=== PATIENT | female | born 1995 | race Caucasian/White ===

== ENCOUNTER 2017-08-25 10:07 | Emergency (ER) | payer OTHER ==
[2017-08-25 10:14] VITALS: BP 108/73
[2017-08-25] MEDS ORDERED: IBUPROFEN 800 MG TABLET PO STA (12:19)
[2017-08-25] MEDS ORDERED: CYCLOBENZAPRINE 10 MG TABLET PO STA (12:19)
--- NOTE | 2017-08-25 12:22 | ED Physician Documentation ---
PD HPI NECK PAIN - Stated complaint Stated Complaint: STIFF NECK - Chief complaint Chief Complaint: Back Pain - History obtained from History obtained from: Patient - History of Present Illness Timing - onset: Other (After getting up this morning she felt her neck crack without specific trauma and now has pain with either rotation or flexion or extension. There is no associated fever or headache. No possibility of . No associated weakness, numbness, tingling in the upper extremities. ) Review of Systems Constitutional: denies: Fever, Chills Nose: denies: Rhinorrhea / runny nose, Congestion Cardiac: reports: Reviewed and negative Respiratory: reports: Reviewed and negative PD PAST MEDICAL HISTORY - Past Medical History Past Medical History: No - Past Surgical History Past Surgical History: No - Present Medications Home Medications: Ambulatory Orders Medication Instructions Recorded Confirmed Cyclobenzaprine [Flexeril] 10 mg PO TID PRN #20 tablet 08/25/17 Ibuprofen [Motrin] 800 mg PO Q8H PRN #30 tablet 08/25/17 - Allergies Allergies/Adverse Reactions: Allergies Allergy/AdvReac Type Severity Reaction Status Date / Time No Known Drug Allergies Allergy Verified 08/25/17 10:14 - Social History Does the pt smoke?: No Smoking Status: Never smoker Does the pt drink ETOH?: No Does the pt have substance abuse?: No - Immunizations Immunizations are current?: Yes PD ED PE NORMAL - Vitals Vital signs reviewed: Yes - General General: Alert and oriented X 3, No acute distress - HEENT HEENT: PERRL, EOMI - Neck Neck: Other (She has difficulty with neck rotation and flexion and extension. She is tender over the left sternocleidomastoid without midline tenderness. 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 Departure - Departure Disposition: Home, Self Care Clinical Impression: Wry neck Condition: Good Record reviewed to determine appropriate education?: Yes Instructions: Torticollis Prescriptions: Cyclobenzaprine [Flexeril] 10 mg PO TID PRN #20 tablet PRN Reason: Pain Ibuprofen [Motrin] 800 mg PO Q8H PRN #30 tablet PRN Reason: PAIN &/OR FEVER Comments: You should be better in about 2 days, [place] Do not drink or drive while taking prescription muscle relaxer. Forms: Activity restrictions
== END 2017-08-25 12:30 | disposition home or self-care (01) ==
LOC: ED 10:07
DX: M43.6 Torticollis (principal)
CPT/HCPCS: 99283; A9270

== ENCOUNTER 2020-02-10 08:00 | Outpatient (CLI) | payer OTHER ==
[2020-02-10 22:27] LABS: TRICHOMONAS VAGINALIS DNA NEGATIVE (NEGATIVE)
== END 2020-02-10 23:59 | disposition home or self-care (01) ==
LOC: LAB.R 08:00
PROVIDERS: ATTEND Obstetrics & Gynecology
DX: Z36.85 Encounter for antenatal screening for Streptococcus B (principal)
CPT/HCPCS: 87491; 87591; 87661; 87797

== ENCOUNTER 2020-03-10 12:13 | Inpatient (IN) | payer OTHER ==
[2020-03-10 13:33] LABS: RUPTURE OF MEMBRANES PLUS POSITIVE (NEGATIVE)
[2020-03-10] MEDS ORDERED: ACETAMINOPHEN 325 MG TABLET PO PRN (14:44)
[2020-03-10] MEDS ORDERED: CARBOPROST TROMETHAMINE 250 MCG/ML AMP IM PRN (14:44)
[2020-03-10] MEDS ORDERED: METHYLERGONOVINE 0.2 MG/ML VIAL IM PRN (14:44)
[2020-03-10] MEDS ORDERED: ONDANSETRON 4 MG/2 ML VIAL IVP PRN (14:44)
[2020-03-10] MEDS ORDERED: OXYTOCIN 10 UNIT/ML VIAL IM PRN (14:44)
[2020-03-10] MEDS ORDERED: OXYTOCIN/SODIUM CHLORIDE 500 ML IV PRN ×2 (14:44)
[2020-03-10] MEDS ORDERED: LIDOCAINE-MPF 1% 30 ML VIAL ID PRN (14:44)
[2020-03-10] MEDS ORDERED: fentaNYL 100 MCG/2 ML VIAL IVP PRN (14:44)
[2020-03-10] MEDS ORDERED: TRANEXAMIC ACID 1,000 MG in SODIUM CHLORIDE 0.9% 100ML 100 ML IV PRN (14:44)
[2020-03-10] MEDS ORDERED: SODIUM CHLORIDE FLUSH 0.9% 10 ML SYRINGE IVP PRN (14:44)
[2020-03-10] MEDS ORDERED: miSOPROStoL 200 MCG TABLET BC PRN (14:44)
[2020-03-10] MEDS ORDERED: miSOPROStoL 100 MCG TABLET ONE (15:05)
[2020-03-10 15:12] LABS: BASOPHILS % (AUTO) 0.3 %; EOSINOPHILS # (AUTO) 0.1 10^3/uL (0.0-0.7); HGB - HEMOGLOBIN 12.8 g/dL (12.0-16.0); LYMPHOCYTES # (AUTO) 1.3 10^3/uL (1.5-3.5); LYMPHOCYTES % (AUTO) 14.4 %; MEAN CORPUSCULAR HEMOGLOBIN 29.6 pg (27.0-31.0); MEAN CORPUSCULAR HGB CONC 33.2 g/dL (32.0-36.0); MEAN CORPUSCULAR VOLUME 89.1 fL (81.0-99.0); MEAN PLATELET VOLUME 11.2 fL (7.9-10.8); MONOCYTES # (AUTO) 0.9 10^3/uL (0.0-1.0); NEUTROPHILS # (AUTO) 6.6 10^3/uL (1.5-6.6); NEUTROPHILS % (AUTO) 73.4 %; PLT - PLATELET COUNT 209 10^3/uL (130-450); RED BLOOD COUNT 4.32 10^6/uL (4.20-5.40)
--- NOTE | 2020-03-10 15:50 | PREOP HISTORY & PHYSICAL ---
DATE OF SERVICE: 03/10/2020 Physician: Albert Joshi MD IDENTIFICATION: The patient is a 24-year-old G1, P1 female whose EDC is March. This was confirmed with early ultrasound at 11 weeks EGA. This makes her 40 weeks and 1 day. CHIEF COMPLAINT: Rupture of membranes. HISTORY OF PRESENT ILLNESS: The patient states that at about 10:55 this morning, she complained of v aginal fluid leakage. She presented to labor and delivery at which time a ROM plus was performed and noted to be positive. Her OB care was initiated at the [facility] and was switched to our clinic at 34 weeks EGA. Her testing was negative for a quad screen . Her 50 gram Glucola was 87. Her blood type is O positive. Her SDI check was negative. Her group B strep culture was negative also. PAST MEDICAL HISTORY: The patient denies any hypertensive, diabetic or cardiac disease. This pregna ncy was is complicated with GERD. PAST SURGICAL HISTORY: None. ALLERGIES: HONEY. CURRENT MEDICATIONS 1. Tums. 2. vitamins. HABITS: The patient denies use of alcohol, tobacco, street or addictive drugs or marijuana. SOCIAL HISTORY: The patient is [employer]. 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 PHYSICAL EXAMINATION GENERAL: The patient is well-developed, well-nourished white female. She is moderately obese. VITAL SIGNS: Noted to be normal. HEENT: Pupils equal, round. Extraocular muscles are intact. Thyroid is not palpably enlarged. HEART: Regular rate and rhythm without murmurs. LUNGS: Lung gaytan are clear without rales or wheezes. BACK: No spinal or CVA tenderness noted. ABDOMEN: Gravid and was noted to be at 9 cm with her last visit. PELVIC: Done by nursing showed her cervix to be long, closed, as well as vertex. The external left os admitted digit, but the internal os did not. She had a ROM plus performed, which was noted to be positive. IMPRESSION: A 24-year-old primigravida at 40 weeks and 1 day with spontaneous rupture of membranes. Her cervix was unfavorable at this time. PLAN: We will administer misoprostol orally until her cervix was more dilated. We will continue wit h monitoring at this point. TD: 03/10/2020 15:14
[2020-03-10] MEDS ORDERED: miSOPROStoL 100 MCG TABLET VG SCH (17:00)
[2020-03-10] MEDS ORDERED: SODIUM CHLORIDE FLUSH 0.9% 10 ML SYRINGE IVP SCH (17:00)
[2020-03-10] MEDS: LACTATED RINGERS 1,000 ML IV SCH ×2 (18:05→21:34)
[2020-03-10] MEDS: miSOPROStoL 100 MCG TABLET BC SCH (19:41)
--- NOTE | 2020-03-10 22:36 | PROVIDER PROGRESS NOTE ---
Labor Progress Note - Uterine Monitoring Uterine Monitoring Mode: positive: External toco Contraction Frequency (min/apart): 2-4 Contraction Intensity: positive: Moderate to strong (4-8/10) Uterine Resting Tone: positive: Soft - Monitoring Monitor Mode: positive: External ultrasound Heart Rate Baseline: 130 Heart Rate Variability: positive: Moderate (6-25 bmp) (varries minimal to moderate) Accelerations: positive: Present, 15x15 (scalp stimulation) Decelerations: positive: None Strip Review: positive: Category I - Vaginal Exam Dilation (in cm): 2 Effacement (%): 60 Station: -2 Cervical Position: Anterior - Labor Progress Note Labor Progress Note/Additional Text: ling varrible with hold misoprostal
[2020-03-11] MEDS: miSOPROStoL 100 MCG TABLET BC SCH (01:29)
[2020-03-11] MEDS: LACTATED RINGERS 1,000 ML IV SCH ×2 (04:00→11:59)
[2020-03-11] MEDS ORDERED: ROPIVACAINE 0.2% 200 MG/100 ML BAG EP ONE (04:12)
[2020-03-11] MEDS ORDERED: NALOXONE 0.4 MG/ML VIAL IVP PRN (05:00)
[2020-03-11] MEDS ORDERED: ONDANSETRON 4 MG/2 ML VIAL IVP PRN (05:00)
[2020-03-11] MEDS ORDERED: METOCLOPRAMIDE 10 MG/2 ML VIAL IVP PRN (05:00)
[2020-03-11] MEDS ORDERED: ePHEDrine 50 MG/ML VIAL IVP PRN (05:00)
[2020-03-11] MEDS ORDERED: diphenhydrAMINE INJ 50 MG/ML VIAL IVP PRN (05:00)
[2020-03-11] MEDS ORDERED: LACTATED RINGERS 500 ML IV ONE (05:00)
[2020-03-11] MEDS ORDERED: NALBUPHINE 10 MG/ML AMP IVP PRN (05:00)
[2020-03-11] MEDS ORDERED: ROPIVACAINE 0.2% 200 MG/100 ML BAG EP PRN (05:00)
--- NOTE | 2020-03-11 05:00 | ANESTHESIA ---
Pre-Anesthesia VS, & Labs - Diagnosis term labor, IUP - Procedure epidural for vaginal delivery Vital Signs: Temp Pulse Resp BP Pulse Ox 36.8 C 106 H 18 129/75 99 03/10/20 14:07 03/10/20 12:17 03/10/20 12:17 03/10/20 12:17 03/10/20 12:17 Height 5 ft 4 in Weight (kg) 99.79 kg Body Mass Index 29.2 - NPO Last Food Intake: full dinner @1800 - Is Patient ?: Yes - Lab Results Current Lab Results: Laboratory Tests 03/10/20 14:35: WBC 9.0, RBC 4.32, Hgb 12.8, Hct 38.5, MCV 89.1, MCH 29.6, MCHC 33.2, RDW 15.0, Plt Count 209, MPV 11.2 H, Neut # (Auto) 6.6, Lymph # (Auto) 1.3 L, [place] # (Auto) 0.9, Eos # (Auto) 0.1, Baso # (Auto) 0.0, Absolute Nucleated RBC 0.00, Nucleated RBC % 0.0 Lab results reviewed: Yes Fish Bones: 03/10/20 14:35 Home Medications and Allergies Active Medications Acetaminophen (Tylenol) 650 mg PO Q6H PRN PRN Reason: Pain or Fever Carboprost Tromethamine (Hemabate) 250 mcg IM Q15M PRN PRN Reason: Step 4: Hemorrhage protocol Stop: 03/12/20 14:45 Fentanyl (Fentanyl) 50 mcg IVP Q1H PRN PRN Reason: PAIN Last Admin: 03/11/20 02:14 Dose: 50 mcg Documented by: Lactated Ringer's (Lr) 1,000 mls @ 100 mls/hr IV .Q10H JASMYNE Last Admin: 03/11/20 04:00 Dose: 150 mls/hr Documented by: Tranexamic Acid 1,000 mg/ (Sodium Chloride) 110 mls @ 660 mls/hr IV ONCE PRN PRN Reason: EBL >1200mL and within 3hr Stop: 03/12/20 14:45 Oxytocin/Sodium Chloride (Pitocin/Sodium Chloride) 500 mls @ 999 mls/hr IV PRN PRN; Protocol PRN Reason: POST- HEMORR PREVENTION Oxytocin/Sodium Chloride (Pitocin/Sodium Chloride) 500 mls @ 1 mls/hr IV TITR JASMYNE; Protocol Lidocaine HCl (Xylocaine-Mpf 1% Vial) 30 ml ID ONCE PRN PRN Reason: PERINEAL REPAIR Stop: 03/12/20 14:45 Methylergonovine Maleate (Methergine Inj) 0.2 mg IM ONCE PRN PRN Reason: Step 2: Hemorrhage protocol Stop: 03/12/20 14:45 Misoprostol (Cytotec) 800 mcg BC ONCE PRN PRN Reason: Step 3: Hemorrhage protocol Stop: 03/12/20 14:45 Misoprostol (Cytotec) 50 mcg BC Q4HR JASMYNE Last Admin: 03/11/20 01:29 Dose: 50 mcg Documented by: Ondansetron HCl (Zofran Inj) 4 mg IVP Q4HR PRN PRN Reason: Nausea / Vomiting Oxytocin (Pitocin) 10 unit IM ONCE PRN PRN Reason: Step one: If no IV access Stop: 03/12/20 14:45 Sodium Chloride (Normal Saline Flush 0.9%) 10 ml IVP 0100,0900,1700 JASMYNE Sodium Chloride (Normal Saline Flush 0.9%) 10 ml IVP PRN PRN PRN Reason: NEEDED PER PROVIDER ORDERS Allergies/Adverse Reactions: Allergies Allergy/AdvReac Type Severity Reaction Status Date / Time No Known Drug Allergies Allergy Verified 08/25/17 10:14 Anes History & Medical History - Anesthetic History Anesthesia Complications: reports: No previous complications Family history of Anesthesia Complications: Denies Family history of Malignant Hyperthermia: Denies - Medical History Cardiovascular: reports: None Pulmonary: reports: None Gastrointestinal: reports: GERD Urinary: reports: None Neuro: reports: None Musculoskeletal: reports: None Endocrine/Autoimmune: reports: None Blood Disorders: reports: None Skin: reports: None Smoking Status: Former smoker Exam General: Alert, Oriented x3, Cooperative Dental: WNL Mouth Openin Fingerbreadth Neck Mobility: Normal Mallampati classification: I Thyromental Distance: greater than 6 cm Respiratory: No respiratory distress Cardiovascular: Regular rate Neurological: Normal speech Mental/Cognitive Status: Alert/Oriented X3, Normal for patient Plan Anesthesia Type: Epidural Consent for Procedure(s) Verified and Reviewed: Yes Code Status: Attempt Resuscitation ASA classification: 2-Mild systemic disease Is this case an emergency?: No
[2020-03-11] MEDS ORDERED: OXYTOCIN/SODIUM CHLORIDE 500 ML IV SCH (05:30)
--- NOTE | 2020-03-11 07:15 | PROVIDER PROGRESS NOTE ---
Labor Progress Note - Uterine Monitoring Uterine Monitoring Mode: positive: External toco (IUPC just placed) Contraction Frequency (min/apart): 2-4 MIN Contraction Intensity: positive: Strong Uterine Resting Tone: positive: Soft - Monitoring Monitor Mode: positive: External ultrasound Heart Rate Baseline: 140 Heart Rate Variability: positive: Minimal (0-5 bpm) Accelerations: positive: Present, 15x15 (with scalp stimulation) Decelerations: positive: Early, Late (some), Prolonged (>2x10 min) Strip Review: positive: Category II - Vaginal Exam Dilation (in cm): 3 Effacement (%): 90 Station: -2 Cervical Position: Midposition - Labor Progress Note Labor Progress Note/Additional Text: difficulty following contractions. Fluid bolas 500 ml O2 IUPC placed with 250 bolas.
[2020-03-11] MEDS ORDERED: CITRIC ACID/SODIUM CITRATE 15 ML UDC PO ONE ×2 (07:53→07:57)
[2020-03-11] MEDS ORDERED: LIDOCAINE-PF 2% 10 ML AMP SUBQ ONE (07:54)
[2020-03-11] MEDS ORDERED: miSOPROStoL 200 MCG TABLET ONE (07:55)
[2020-03-11] MEDS ORDERED: CARBOPROST TROMETHAMINE 250 MCG/ML AMP IM ONE (07:56)
[2020-03-11] MEDS ORDERED: METHYLERGONOVINE 0.2 MG/ML VIAL ONE (07:56)
[2020-03-11] MEDS ORDERED: LACTATED RINGERS 1,000 ML IV ONE ×3 (08:17→15:46)
[2020-03-11] MEDS ORDERED: ROPIVACAINE 0.5% PF 20 ML AMPULE ONE (08:34)
[2020-03-11] MEDS ORDERED: SODIUM CHLORIDE 0.9% 400 ML IV ONE (09:27)
--- NOTE | 2020-03-11 09:47 | OPERATIVE REPORT ---
Operative Report - General Admit Date: 03/10/20 Procedure Date: 03/11/20 Planned Procedure: EPLT/S Pre-Op Diagnosis: intolerance of labor. Procedure Performed: EPLTC/S Post Op Diagnosis: intolerance of labor. - Procedure Note Primary Surgeon: nupur Joshi MD Secondary Surgeon: Daniel MCKEON Anesthesia Provider: Caroline Nassar CRNA Anesthesia Technique: Epidural Pathology: Placenta IV Fluids (mL): 900 Estimated Blood Loss (mL): 500 Urine Output (mL): 150 Findings: Female infant 03/17 FREDRICK Head molded minimal fluid no Mec
[2020-03-11] MEDS ORDERED: SODIUM CHLORIDE FLUSH 0.9% 10 ML SYRINGE IVP PRN (09:57)
[2020-03-11] MEDS ORDERED: oxyCODONE 5 MG TABLET PO PRN (09:57)
[2020-03-11] MEDS ORDERED: LACTATED RINGERS 1,000 ML IV SCH ×2 (10:00→15:48)
--- NOTE | 2020-03-11 11:02 | OPERATIVE REPORT ---
DATE OF SERVICE: 03/11/2020 Physician: Albert Joshi MD PREOPERATIVE DIAGNOSES 1. Term cyesis. 2. Spontaneous rupture of membranes. 3. Repetitive late decelerations with intolerance of labor. POSTOPERATIVE DIAGNOSES 1. Term cyesis. 2. Spontaneous rupture of membranes. 3. Repetitive late decelerations with intolerance of labor. PROCEDURE PERFORMED: Primary low transverse section. SURGEON: Albert Joshi MD PILL PACKER: Dr. Sanchez ANESTHESIA: Kassandra Nassar CRNA ANESTHETIC: Epidural. PATHOLOGY: Placenta. INTRAVENOUS FLUIDS: 900 mL ESTIMATED BLOOD LOSS: 500 mL URINE OUTPUT: 150 mL FINDINGS: Live female , left occiput anterior, with significant head molding. Minimal amniotic fluid. IUPC was within the amniotic cavity. DESCRIPTION OF PROCEDURE: Following adequate epidural anesthesia, patient was placed in the supine position with a roll under her right hip. A timeout was performed, at which time concerns were addressed. At this point, a Pfannenstiel incision was carried down through subcutaneous tissue to the fascia. The fascia was incised transversely, then, using both blunt and sharp dissection, was freed from rectus abdominis and pyramidalis. Rectus was then split along the midline. Peritoneum entered high. Care was taken to avoid any injury to bowel or bladder. At this point, a bladder flap was developed using a #10 blade, bandage scissors, and finger spread technique. The head of the infant was noted to be left occiput anterior, was lifted out of the pelvis. There were no nuchal cords at this time, but there was minimal amniotic fluid. The infant was delivered without difficulty. The was vigorous at time of delivery, so 30 seconds was allowed to elapse before the cord was clamped and divided. At this point, the intrauterine pressure catheter was noted to reside in the amniotic cavity. This was then removed. The placenta was manually delivered. The uterus was exteriorized, wrapped in a moist lap, and cleansed in the internal portion with a dry lap. At this point, the incision was grasped with ring forceps and closed utilizing 0 Vicryl in a running locking suture with an imbricating layer of #0 Vicryl. At this point, the incision showed some oozing at the midline, so this was reinforced with a [id number]-le-qubyj. The uterus was then tipped forward, and the cul-de-sac was suctioned free of any blood. Estimated blood loss was accomplished at this time, considering both the fluid in the canister as well as the laps. The uterus was delivered back into the abdominal cavity. The peritoneum was closed using 2-0 Vicryl. The rectus was reapproximated with 2 [id number]-venye 0-Vicryl, and the fascia was closed utilizing looped PDS in a running suture. Subcutaneous tissues were irrigated and then closed using 2-0 Vicryl. The incision itself was closed using 4-0 Monocryl subcuticular. A wound VAC was then placed with evidence of good seal. The uterus at this point was expressed, and minimal blood was removed. Patient tolerated the procedure well and was taken to Recovery in stable condition. Sponge and needle counts were correct. During this procedure, Dr. Sanchez's assistance was very important, both in retraction of the suture, as well as fundal pressure. TD: 03/11/2020 09:59 TRA
[2020-03-11] MEDS ORDERED: KETOROLAC 30 MG/ML VIAL IVP PRN (11:25)
[2020-03-11] MEDS ORDERED: oxyCODONE ER 10 MG TABLET PO PRN (15:46)
[2020-03-11] MEDS: ACETAMINOPHEN 500 MG TABLET PO SCH ×2 (15:48→23:47)
--- NOTE | 2020-03-11 15:54 | PROVIDER PROGRESS NOTE ---
Subjective - Prog Note Date Prog Note Date: 03/11/20 Prog Note Time: 15:49 - Subjective Subjective: POST-OP CHECK C/O mild incisional pain despite nerve block, duramorph and toredol. Otherwise ok, no nausea, no other complaints. VSS afeb O2 sat 99% RA UO 75cc/hr until this last hour at 25cc for 50 minutes Abd soft, non-tender, fundus firm below umbilicus. Dressing D&I, no erythema or induration. SCDs in place Minimal lochia A/P Oliguria this last hour. Will give fluid bolus; 1 liter now, then 200cc/hr x 1 liter. Reassess. Will increase toredol to q6h and schedule dosing. Add long acting oxycodone Advance diet. Continue routine post op care. Objective - Vital Signs/Intake & Output Vital Signs: Vital Signs x48h Temp Pulse Pulse Resp BP BP Pulse Ox 03/11/20 14:44 98.1 F 83 16 103/61 99 03/11/20 13:04 98.4 F 93 18 111/70 99 03/11/20 09:43 98.6 F 86 19 109/65 98 03/11/20 09:34 98.6 F 88 18 113/75 98 03/11/20 09:29 98.6 F 84 14 114/69 99 03/11/20 09:24 98.6 F 85 12 120/105 H 98 Intake & Output: Intake & Output 03/08/20 03/09/20 03/10/20 03/11/20 23:59 23:59 23:59 23:59 Intake Total 1000 1965 Output Total 450 Balance 1000 1515 - Lab Results Fish Bones: 03/10/20 14:35
--- NOTE | 2020-03-11 16:09 | DISCHARGE SUMMARY ---
"Discharge Summary Admit Date: 03/10/20 Discharging Provider: Ludy Rojas Code Status: Attempt Resuscitation Condition at Discharge: Good Discharge Disposition: 01 Home, Self Care - DIAGNOSES Admission Diagnoses: at 40w1d PROM - HPI History of Present Illness: Pt is at 24yo G1 now P1 at 40w1d admitted with PROM of clear fluid. She denied other complaints. was initiated on [facility] clinic, transfered here at 34 weeks. Reports no complications - CONSULTS | PROCEDURES Procedures: Primary LTCS - HOSPITAL COURSE Hospital Course: Misoprostol was initiated. heart rate decelerations were noted that did not improve with resuscitative measures. As she was remote from delivery, 3cm dilated, she was taken to the the OR for unscheduled LTCS. She was delivered of a 3390gm female infant apgars 7/9. EBL was 500cc. She required additional fluid postop as she became transiently oliguric which recovered without difficulty. Her postop hgb was 9.5 down from 12.8. She was given 1000mg of IV iron. On POD 2 small blisters were noted at the left margin of the tegaderm dressing for the wound vac. There was no induration or surrounding erythema. The wound was otherwise intact without signs of infection. She is planning Nexplanon for contraception. Plan f/u within the week. - ALLERGIES Allergies/Adverse Reactions: Allergies Allergy/AdvReac Type Severity Reaction Status Date / Time No Known Drug Allergies Allergy Verified 08/25/17 10:14 - MEDICATIONS Home Medications: Ambulatory Orders Medication Instructions Recorded Confirmed Ibuprofen [Motrin] 600 mg PO Q8H PRN #30 tablet 03/13/20 oxyCODONE ER [OxyCONTIN] 10 mg PO BID PRN #15 tablet 03/13/20 Home Medications Other | Comments: vitamins - PHYSICAL EXAM AT DISCHARGE General Appearance: positive: No acute distress, Alert Respiratory: positive: No respiratory distress Abdomen: positive: Non-tender, Nml bowel sounds, Other (small blisters were noted at the left margin of the tegaderm dressing for the wound vac. There was no induration or surrounding erythema. The wound was otherwise intact without signs of infection.) Skin: positive: Color nml, Warm, Dry Extremities: positive: Pedal edema (trace) Neurologic/Psychiatric: positive: Oriented x3, Mood/affect nml - LABS Result Diagrams: 03/12/20 04:30"
[2020-03-11] MEDS ORDERED: SODIUM CHLORIDE FLUSH 0.9% 10 ML SYRINGE IVP SCH (17:00)
[2020-03-11] MEDS: KETOROLAC 15 MG/ML VIAL IVP SCH (18:38)
[2020-03-11] MEDS ORDERED: KETOROLAC 30 MG/ML VIAL ONE (23:33)
[2020-03-12] MEDS: KETOROLAC 15 MG/ML VIAL IVP SCH ×2 (00:52→06:55)
[2020-03-12 04:56] LABS: BASOPHILS % (AUTO) 0.4 %; EOSINOPHILS # (AUTO) 0.1 10^3/uL (0.0-0.7); EOSINOPHILS % (AUTO) 0.6 %; HGB - HEMOGLOBIN 9.5 g/dL (12.0-16.0); LYMPHOCYTES # (AUTO) 1.7 10^3/uL (1.5-3.5); LYMPHOCYTES % (AUTO) 15.8 %; MEAN CORPUSCULAR HEMOGLOBIN 30.4 pg (27.0-31.0); MEAN CORPUSCULAR HGB CONC 33.3 g/dL (32.0-36.0); MEAN CORPUSCULAR VOLUME 91.3 fL (81.0-99.0); MEAN PLATELET VOLUME 11.3 fL (7.9-10.8); MONOCYTES # (AUTO) 0.9 10^3/uL (0.0-1.0); MONOCYTES % (AUTO) 8.7 %; NEUTROPHILS # (AUTO) 7.7 10^3/uL (1.5-6.6); NEUTROPHILS % (AUTO) 74.1 %; PLT - PLATELET COUNT 149 10^3/uL (130-450); RED BLOOD COUNT 3.12 10^6/uL (4.20-5.40); RED CELL DISTRIBUTION WIDTH 15.8 % (12.0-15.0); WHITE BLOOD COUNT 10.4 x10^3/uL (4.8-10.8)
[2020-03-12] MEDS ORDERED: KETOROLAC 30 MG/ML VIAL ONE (06:43)
[2020-03-12] MEDS: ACETAMINOPHEN 500 MG TABLET PO SCH ×2 (08:44→18:45)
--- NOTE | 2020-03-12 09:07 | PROVIDER PROGRESS NOTE ---
Subjective - Prog Note Date Prog Note Date: 03/12/20 Prog Note Time: 09:05 - Subjective Subjective: POD 1 Pain in good control. Up to ambulate last PM. Diaz removed. Tolerating reg diet. Normal lochia. going well. VSS afeb UO continued borderline last PM and increased overnight now >150cc/hr Abd soft, non-tender. Fundus firm below umbilicus. Dressing D&I without erythema or induration. Extr with trace edema. H&H 9.5/28.5 this AM down from 12.8/38.5 A/P Stable. UO improved, destin MENDOZA'd. Anemia noted; will give IV iron today; calculated dose for target hgb of 13.0 is 1135mg. Continue routine postop care. Objective - Vital Signs/Intake & Output Vital Signs: Vital Signs x48h Temp Pulse Resp BP Pulse Ox 03/12/20 07:49 97.8 F 81 16 111/61 98 03/12/20 04:53 98.8 F 92 16 115/65 98 Intake & Output: Intake & Output 03/09/20 03/10/20 03/11/20 03/12/20 23:59 23:59 23:59 23:59 Intake Total 1000 4380 1150 Output Total 930 470 Balance 1000 3450 680 - Lab Results Fish Bones: 03/12/20 04:30 Other Labs: Lab Results x24hrs 03/12/20 Range/Units 04:30 WBC 10.4 (4.8-10.8) x10^3/uL RBC 3.12 L (4.20-5.40) 10^6/uL Hgb 9.5 L (12.0-16.0) g/dL Hct 28.5 L (37.0-47.0) % MCV 91.3 (81.0-99.0) fL MCH 30.4 (27.0-31.0) pg MCHC 33.3 (32.0-36.0) g/dL RDW 15.8 H (12.0-15.0) % Plt Count 149 (130-450) 10^3/uL MPV 11.3 H (7.9-10.8) fL Neut # (Auto) 7.7 H (1.5-6.6) 10^3/uL Lymph # (Auto) 1.7 (1.5-3.5) 10^3/uL [place] # (Auto) 0.9 (0.0-1.0) 10^3/uL Eos # (Auto) 0.1 (0.0-0.7) 10^3/uL Baso # (Auto) 0.0 (0.0-0.1) 10^3/uL Absolute Nucleated RBC 0.00 x10^3/uL Nucleated RBC % 0.0 /100WBC
[2020-03-12] MEDS ORDERED: IRON DEXTRAN 1,000 MG in SODIUM CHLORIDE 0.9% 250 ML IV ONE (10:00)
[2020-03-13] MEDS: ACETAMINOPHEN 500 MG TABLET PO SCH ×2 (02:20→12:17)
--- NOTE | 2020-03-13 07:59 | PROVIDER PROGRESS NOTE ---
Subjective - Prog Note Date Prog Note Date: 03/13/20 Prog Note Time: 07:58 - Subjective Subjective: POD 2 Feeling well. Ambulating, pain controlled, normal lochia. going well. Tolerating reg diet, voiding. VSS afeb ABD/ Soft, non-tender, fundus firm below umbilicus. Small blisters noted at the left margin of the tegaderm dressing for the wound vac. There is no induration or surrounding erythema. The wound is otherwise intact without signs of infection. EXT/ Trace bipedal edema A/P Stable. Planning Nexplanon for contraception. Plan DC home today. Objective - Vital Signs/Intake & Output Vital Signs: Vital Signs x48h Temp Pulse Resp BP Pulse Ox 03/13/20 04:45 97.7 F 82 16 112/55 L 98 03/13/20 00:17 98.4 F 88 16 125/59 L 99 Intake & Output: Intake & Output 03/10/20 03/11/20 03/12/20 03/13/20 23:59 23:59 23:59 23:59 Intake Total 1000 4380 2120 Output Total 930 1620 Balance 1000 3450 500 - Lab Results Fish Bones: 03/12/20 04:30
--- NOTE | 2020-03-13 08:03 | Discharge Plan ---
Discharge Plan Problem Reviewed?: Yes Disposition: Home, Self Care Condition: Good Prescriptions: Ibuprofen [Motrin] 600 mg PO Q8H PRN #30 tablet PRN Reason: PAIN &/OR FEVER oxyCODONE ER [OxyCONTIN] 10 mg PO BID PRN #15 tablet PRN Reason: Pain Diet: Regular Activity Restrictions: Additional Comments (No heavy lifting (>10 pounds)) Shower Restrictions: No Driving Restrictions: No No Smoking: If you smoke, Please STOP! Call for help.
[2020-03-13 08:46] VITALS: BP 122/69
[2020-03-13] MEDS ORDERED: IBUPROFEN 600 MG TABLET PO PRN (08:53)
--- NOTE | 2020-03-13 12:55 | Labor Flowsheet ---
Labor Flowsheet Datetime Report Generated by CPN: 03/13/2020 12:55 Datetime: 03/13/2020 08:30 VITAL SIGNS NBP Sys/Ani/Mean (mmHg): 122 : 69 : 81 Pulse: 70 SpO2 (%): 98 Datetime: 03/11/2020 11:31 Temperature (C): 36.9 Datetime: 03/11/2020 11:00 Stage of : Recovery Datetime: 03/11/2020 10:30 PAIN Pain Scale: 0 Datetime: 03/11/2020 07:51 UTERINE ACTIVITY Monitor Mode: External Frequency (min): 2-4 Quality: Moderate Duration (sec): 30-90 Pattern: Normal: <= 5 Contractions in 10 Minutes Resting Tone (Palpate): Relaxed ASSESSMENT A Monitor Mode: Telemetry FHR Baseline Rate : 140 Variability: Minimal - Undetectable to <=5 bpm Accelerations: None Decelerations: Prolonged Category: Category II Oxygen Method: Face Mask Patient Care Comments: monitoring stopped went to OR for Datetime: 03/11/2020 07:46 LaborFlag: Labor Datetime: 03/11/2020 07:19 COMMUNICATION Communication: Provider at Bedside Provider Notified (Name): Dr. Joshi Notification Reason: Status Datetime: 03/11/2020 07:14 Communication Comments: Report to dayshift RN's Datetime: 03/11/2020 07:00 Comments: periods of mod variability Datetime: 03/11/2020 06:53 Monitor Interventions for UA: IUPC Inserted Datetime: 03/11/2020 06:38 Actions for Decelerations: Oxygen Applied Pain Presence: None/Denies VAGINAL EXAM Dilatation (cm): 3.0 Effacement (%): 90 Station: -1 Exam by: Dr. Joshi Vaginal Bleeding: None Cervix, Consistency: Soft Cervix, Position: Anterior Strip Reviewed by: Dr. Joshi Datetime: 03/11/2020 06:23 PATIENT CARE IV/Blood Work: IV Bolus Given ml @ 250ml LR Datetime: 03/11/2020 06:10 Provider Reviewed Strip: No Datetime: 03/11/2020 06:06 Contraction Comments: difficult to determine Patient Position/Activity: Right Lateral Datetime: 03/11/2020 05:25 I/O Interventions: Diaz Cath Inserted Datetime: 03/11/2020 04:48 Pain Relief Measures: Epidural Given Pain Assessment Comments: comfortable with epidural Datetime: 03/11/2020 04:39 Epidural Procedure: Loading Dose Datetime: 03/11/2020 04:18 PROCEDURE TIME OUT Procedure Verify: Correct Patient Identity; Correct Side and Site are Marked; Accurate Procedure Co nsent Form; Agreement on Procedure to be Done; Correct Patient Position ANESTHESIA Anesthesia Plans: Epidural Epidural Positioning: Sitting Datetime: 03/11/2020 04:10 Anesthesia Comments: FEATHERER at bedside consenting pt Datetime: 03/11/2020 03:32 Pain Type: Contraction Pain Location: Abdomen Pain Coping: Breathing Through Contractions Comfort Measures: Breathing/Relaxation Datetime: 03/11/2020 02:30 MEDICATIONS Analgesics/Sedatives: Fentanyl (mcg) @ 50mcg IVP Datetime: 03/11/2020 01:30 Membrane Status: Ruptured Amniotic Fluid Color: Clear Amniotic Fluid Amount: Scant Cervical Ripening Agents: Cytotec @ 50mcg PO Datetime: 03/10/2020 21:17 MATERNAL ASSESSMENT Level of Consciousness: Alert Headache: Denies Breath Sounds, Left: Clear and Equal Breath Sounds, Right: Clear and Equal Nausea/Vomiting: Denies RUQ Epigastric Pain: Denies Datetime: 03/10/2020 19:42 TEACHING Instructional Method: Written Plan of Care: Plan of Care Discussed Labor/Induction: Tachysystole Interventions; Interventions PTL/PROM: Signs/Symptoms of Infection Related: Activity and Rest Datetime: 03/10/2020 18:24 Hygiene: Ana Care Datetime: 03/10/2020 18:10 Medication Comments: LR bolus started per MD 500ml Datetime: 03/10/2020 18:06 FHR Baseline Changes: No Baseline Change Datetime: 03/10/2020 15:05 Respirations: 18
== END 2020-03-13 12:40 | disposition home or self-care (01) | DRG 786 ==
LOC: WFO 12:13 → FBP 12:14 → WFO 14:43 → FBP 14:44
PROVIDERS: ADMIT Obstetrics & Gynecology; ATTEND Obstetrics & Gynecology
PROC: 10D00Z1 Extraction of Products of Conception, Low, Open Approach (ICD-10-PCS; principal; 2020-03-11 08:00)
DX: O42.02 Full-term premature rupture of membranes, onset of labor within 24 hours of rupture (principal); O90.4 Postpartum acute kidney failure; O76 Abnormality in fetal heart rate and rhythm complicating labor and delivery; O99.214 Obesity complicating childbirth; E66.9 Obesity, unspecified; O99.62 Diseases of the digestive system complicating childbirth; K21.9 Gastro-esophageal reflux disease without esophagitis; Z37.0 Single live birth; O90.81 Anemia of the puerperium; D64.9 Anemia, unspecified; S30.821A Blister (nonthermal) of abdominal wall, initial encounter; X58.XXXA Exposure to other specified factors, initial encounter; Y92.230 Patient room in hospital as the place of occurrence of the external cause; Z3A.40 40 weeks gestation of pregnancy; Z87.891 Personal history of nicotine dependence
CPT/HCPCS: 36415; 84112; 85025; 99213; A9270; J1750; J7120

== ENCOUNTER 2020-03-25 13:49 | Outpatient (CLI) | payer OTHER | END 2020-03-25 14:50 | disposition home or self-care (01) | LOC: WFO 13:49 → FBP 13:52 → WFO 14:50 | PROVIDERS: ATTEND Obstetrics & Gynecology | DX: O92.79 Other disorders of lactation (principal) | CPT/HCPCS: 99403 ==